=== PATIENT | female | born 1990 | race African-American/Black ===

== ENCOUNTER 2017-06-15 19:16 | Emergency (ER) | payer MEDICAID | END 2017-06-15 20:08 | disposition home or self-care (01) | LOC: D.ER 19:16 | DX: J06.9 Acute upper respiratory infection, unspecified (principal); J02.9 Acute pharyngitis, unspecified; F17.200 Nicotine dependence, unspecified, uncomplicated; I10 Essential (primary) hypertension ==

== ENCOUNTER 2017-10-28 11:56 | Emergency (ER) | payer MEDICAID ==
[2017-10-28 12:53] LABS: BASOPHILS 0.1 % (0-2); EOSINOPHILS 0.5 % (0-7); HEMOGLOBIN 13.2 g/dL (12-16); IMMATURE GRANULOCYTES 0.4 % (0-5); MCH 27.7 pg (26.0-34.0); MCHC 33.8 g/dL (31.0-37.0); MCV 81.8 fL (80.0-100.0); MEAN PLATELET VOLUME 10.1 fL (7.4-10.4); MONOCYTES 6.9 % (2-11); NEUTROPHILS 75.1 % (40-80); PLATELET COUNT 276 10x3/uL (130-400); RBC 4.77 10x6/uL (4.00-5.40); RDW 14.9 % (11.5-14.5); WBC 17.4 10x3/uL (4.8-10.8)
[2017-10-28 13:10] LABS: ALBUMIN 3.5 g/dL (3.4-5.0); ALKALINE PHOSPHATASE 95 U/L (46-116); ALT (SGPT) 36 U/L (10-68); BILIRUBIN - TOTAL 0.63 mg/dL (0.2-1.3); CALC OSMOLALITY 269 mosm/kg (275-300); CALCIUM 9.1 mg/dL (8.5-10.1); CARBON DIOXIDE 24.7 mmol/L (21.0-32.0); CHLORIDE - SERUM 101 mmol/L (98-107); CREATININE - SERUM 0.7 mg/dL (0.6-1.3); GLUCOSE 75 mg/dL (74-106); LIPASE 99 U/L (73-393); PROTEIN - SERUM 8.2 g/dL (6.4-8.2); SODIUM 136 mmol/L (136-145); UREA NITROGEN 10 mg/dL (7-18); eGFR NON AFRICAN AMERICAN > 90 mL/min (90-120)
[2017-10-28 13:11] LABS: POTASSIUM - SERUM 4.3 mmol/L (3.5-5.1)
[2017-10-28 14:15] LABS: APPEARANCE SLT CLOUDY (CLEAR); COLOR YELLOW (YELLOW)
[2017-10-28 14:16] LABS: BACTERIA MANY /hpf (NONE SEEN); BILIRUBIN NEGATIVE (NEGATIVE); GLUCOSE NEGATIVE (NEGATIVE); KETONE NEGATIVE (NEGATIVE); MUCUS <1+ /lpf (NONE SEEN); NITRITE POSITIVE (NEGATIVE); PROTEIN NEGATIVE (NEGATIVE); UROBILINOGEN NORMAL (NORMAL); WHITE CELLS - URINE 0-5 /hpf (0-5)
== END 2017-10-28 16:43 | disposition home or self-care (01) ==
LOC: D.ER 11:56
PROVIDERS: Family Medicine
DX: N39.0 Urinary tract infection, site not specified (principal); N10 Acute pyelonephritis

== ENCOUNTER 2017-12-10 15:37 | Emergency (ER) | payer MEDICAID ==
[2017-12-10 16:19] LABS: APPEARANCE CLEAR (CLEAR); BILIRUBIN NEGATIVE (NEGATIVE); COLOR YELLOW (YELLOW); GLUCOSE NEGATIVE (NEGATIVE); KETONE NEGATIVE (NEGATIVE); NITRITE NEGATIVE (NEGATIVE); PROTEIN NEGATIVE (NEGATIVE); UROBILINOGEN NORMAL (NORMAL)
[2017-12-10 16:49] LABS: BASOPHILS 0.2 % (0-2); EOSINOPHILS 1.4 % (0-7); HEMATOCRIT 37.9 % (36.0-48.0); HEMOGLOBIN 12.9 g/dL (12-16); IMMATURE GRANULOCYTES 0.2 % (0-5); LYMPHOCYTES 22.5 % (15-50); MCH 27.7 pg (26.0-34.0); MCV 81.3 fL (80.0-100.0); MEAN PLATELET VOLUME 9.5 fL (7.4-10.4); MONOCYTES 7.2 % (2-11); NEUTROPHILS 68.5 % (40-80); PLATELET COUNT 262 10x3/uL (130-400); RBC 4.66 10x6/uL (4.00-5.40); RDW 15.1 % (11.5-14.5); WBC 12.4 10x3/uL (4.8-10.8)
[2017-12-10 17:04] LABS: ALBUMIN 3.1 g/dL (3.4-5.0); ALKALINE PHOSPHATASE 69 U/L (46-116); ALT (SGPT) 22 U/L (10-68); BILIRUBIN - TOTAL 0.17 mg/dL (0.2-1.3); CALC OSMOLALITY 274 mosm/kg (275-300); CALCIUM 8.9 mg/dL (8.5-10.1); CARBON DIOXIDE 26.6 mmol/L (21.0-32.0); CHLORIDE - SERUM 104 mmol/L (98-107); CREATININE - SERUM 0.7 mg/dL (0.6-1.3); GLUCOSE 105 mg/dL (74-106); POTASSIUM - SERUM 3.6 mmol/L (3.5-5.1); PROTEIN - SERUM 6.8 g/dL (6.4-8.2); SODIUM 138 mmol/L (136-145); UREA NITROGEN 9 mg/dL (7-18); eGFR NON AFRICAN AMERICAN > 90 mL/min (90-120)
[2017-12-10 17:27] LABS: AMYLASE - SERUM 55 U/L (25-115); HCG - QUANTITATIVE (MATERNAL) 89849 mIU/mL; LIPASE 114 U/L (73-393)
== END 2017-12-10 19:05 | disposition home or self-care (01) ==
LOC: D.ER 15:37
PROVIDERS: Family Medicine
DX: O26.899 Other specified pregnancy related conditions, unspecified trimester (principal); Z3A.00 Weeks of gestation of pregnancy not specified; R11.0 Nausea

== ENCOUNTER 2017-12-17 04:37 | Emergency (ER) | payer MEDICAID ==
[2017-12-17 05:27] LABS: BASOPHILS 0.2 % (0-2); EOSINOPHILS 0.9 % (0-7); HEMATOCRIT 37.7 % (36.0-48.0); HEMOGLOBIN 12.7 g/dL (12-16); IMMATURE GRANULOCYTES 0.3 % (0-5); LYMPHOCYTES 29.6 % (15-50); MCH 27.7 pg (26.0-34.0); MCHC 33.7 g/dL (31.0-37.0); MCV 82.1 fL (80.0-100.0); MEAN PLATELET VOLUME 9.9 fL (7.4-10.4); MONOCYTES 6.3 % (2-11); NEUTROPHILS 62.7 % (40-80); RBC 4.59 10x6/uL (4.00-5.40); RDW 15.4 % (11.5-14.5); WBC 15.6 10x3/uL (4.8-10.8)
[2017-12-17 05:33] LABS: PLATELET COUNT 318 10x3/uL (130-400)
[2017-12-17 05:46] LABS: ALBUMIN 3.1 g/dL (3.4-5.0); ALKALINE PHOSPHATASE 68 U/L (46-116); ALT (SGPT) 20 U/L (10-68); CALC OSMOLALITY 273 mosm/kg (275-300); CALCIUM 8.9 mg/dL (8.5-10.1); CARBON DIOXIDE 27.3 mmol/L (21.0-32.0); CHLORIDE - SERUM 105 mmol/L (98-107); CREATININE - SERUM 0.7 mg/dL (0.6-1.3); GLUCOSE 89 mg/dL (74-106); PROTEIN - SERUM 6.7 g/dL (6.4-8.2); SODIUM 138 mmol/L (136-145); UREA NITROGEN 9 mg/dL (7-18); eGFR NON AFRICAN AMERICAN > 90 mL/min (90-120)
[2017-12-17 05:52] LABS: APPEARANCE HAZY (CLEAR); BILIRUBIN NEGATIVE (NEGATIVE); COLOR YELLOW (YELLOW); GLUCOSE NEGATIVE (NEGATIVE); NITRITE NEGATIVE (NEGATIVE); PH 5.5 (5.0-6.0); PROTEIN TRACE mg/dL (NEGATIVE); UROBILINOGEN NORMAL (NORMAL); WHITE CELLS - URINE NSEEN /hpf (0-5)
[2017-12-17 05:53] LABS: AMORPHOUS SEDIMENT <1+ /lpf (NONE SEEN); BACTERIA MODERATE /hpf (NONE SEEN); GRANULAR CAST NONE SEEN /lpf (NONE SEEN); HYALINE CAST NONE SEEN /lpf (NONE SEEN); MUCUS >1+ /lpf (NONE SEEN); RED CELL CAST NONE SEEN /lpf (NONE SEEN); RED CELLS - URINE 0-5 /hpf (0-5); SPERMATOZOA NONE SEEN /hpf (NONE SEEN); WAXY CAST NONE SEEN /lpf (NONE SEEN); YEAST NONE SEEN /hpf (NONE SEEN)
[2017-12-17 05:54] LABS: KETONE NEGATIVE (NEGATIVE)
[2017-12-17 05:55] LABS: HCG SERUM POSITIVE (NEGATIVE)
[2017-12-17 06:08] LABS: HCG - QUANTITATIVE (MATERNAL) 150150 mIU/mL
== END 2017-12-17 08:25 | disposition home or self-care (01) ==
LOC: D.ER 04:37
PROVIDERS: Family Medicine
DX: O20.8 Other hemorrhage in early pregnancy (principal); Z3A.01 Less than 8 weeks gestation of pregnancy; F17.200 Nicotine dependence, unspecified, uncomplicated

== ENCOUNTER 2018-01-20 17:01 | Emergency (ER) | payer MEDICAID ==
[~2018-01-20] VITALS: Ht 157.5 cm; Wt 100.0 kg
[2018-01-20 17:21] VITALS: Ht 157.5 cm; Wt 100.0 kg
[2018-01-21 02:06] VITALS: BP 139/76
== END 2018-01-21 02:00 | disposition home or self-care (01) ==
LOC: D.ER 17:01
DX: O26.891 Other specified pregnancy related conditions, first trimester (principal); Z3A.11 11 weeks gestation of pregnancy; E86.0 Dehydration; F17.200 Nicotine dependence, unspecified, uncomplicated

== ENCOUNTER 2018-02-10 19:13 | Emergency (ER) | payer MEDICAID ==
[~2018-02-10] VITALS: Ht 157.5 cm; Wt 81.6 kg
[2018-02-10 19:20] VITALS: Ht 157.5 cm; Wt 81.6 kg
[2018-02-10 20:44] LABS: BASOPHILS 0.2 % (0-2); EOSINOPHILS 1.3 % (0-7); HEMOGLOBIN 11.6 g/dL (12-16); IMMATURE GRANULOCYTES 0.5 % (0-5); LYMPHOCYTES 25.7 % (15-50); MCH 28.1 pg (26.0-34.0); MCHC 34.1 g/dL (31.0-37.0); MCV 82.3 fL (80.0-100.0); MEAN PLATELET VOLUME 9.8 fL (7.4-10.4); MONOCYTES 6.2 % (2-11); NEUTROPHILS 66.1 % (40-80); PLATELET COUNT 284 10x3/uL (130-400); RBC 4.13 10x6/uL (4.00-5.40); RDW 15.8 % (11.5-14.5); WBC 15.4 10x3/uL (4.8-10.8)
[2018-02-10 20:52] LABS: APPEARANCE SL CLDY (CLEAR); BILIRUBIN NEGATIVE (NEGATIVE); COLOR DK YELLOW (YELLOW); GLUCOSE NEGATIVE (NEGATIVE); KETONE NEGATIVE (NEGATIVE); NITRITE NEGATIVE (NEGATIVE); PROTEIN TRACE mg/dL (NEGATIVE); UROBILINOGEN NORMAL (NORMAL)
[2018-02-10 20:53] LABS: UDS - AMPHET NEGATIVE QUAL (NEGATIVE); UDS - BARB NEGATIVE QUAL (NEGATIVE); UDS - BENZO NEGATIVE QUAL (NEGATIVE); UDS - COCAINE NEGATIVE QUAL (NEGATIVE); UDS - OPIATE NEGATIVE QUAL (NEGATIVE); UDS - PCP NEGATIVE QUAL (NEGATIVE); UDS - THC NEGATIVE QUAL (NEGATIVE)
[2018-02-10 20:55] LABS: BACTERIA MODERATE /hpf (NONE SEEN); CALCIUM OXALATE CRYSTALS 0-5 /hpf (NONE SEEN); MUCUS <1+ /lpf (NONE SEEN); RED CELLS - URINE 0-5 /hpf (0-5)
[2018-02-10 21:08] LABS: ALBUMIN 2.7 g/dL (3.4-5.0); ALKALINE PHOSPHATASE 76 U/L (46-116); ALT (SGPT) 14 U/L (10-68); BILIRUBIN - TOTAL 0.11 mg/dL (0.2-1.3); CALC OSMOLALITY 272 mosm/kg (275-300); CARBON DIOXIDE 24.6 mmol/L (21.0-32.0); CHLORIDE - SERUM 105 mmol/L (98-107); CREATININE - SERUM 0.6 mg/dL (0.6-1.3); GLUCOSE 101 mg/dL (74-106); POTASSIUM - SERUM 3.7 mmol/L (3.5-5.1); PROTEIN - SERUM 6.7 g/dL (6.4-8.2); SODIUM 137 mmol/L (136-145); UREA NITROGEN 9 mg/dL (7-18); eGFR NON AFRICAN AMERICAN > 90 mL/min (90-120)
[2018-02-10] MEDS ORDERED: MACROBID100 MG PO (21:29)
[2018-02-10 23:04] VITALS: BP 132/77
== END 2018-02-10 23:05 | disposition home or self-care (01) ==
LOC: D.ER 19:13
PROVIDERS: Family Medicine
DX: O23.41 Unspecified infection of urinary tract in pregnancy, first trimester (principal); Z3A.11 11 weeks gestation of pregnancy; R51 Headache; R42 Dizziness and giddiness; F17.200 Nicotine dependence, unspecified, uncomplicated

== ENCOUNTER → 2018-04-06 13:00 | Outpatient (CLI) | payer MEDICAID ==
[2018-02-10 19:20] VITALS: BMI 40.3
[~2018-04-06 13:00] MED LIST: MACROBID100 MG PO
[2018-04-06 15:11] LABS: APPEARANCE CLEAR (CLEAR); BILIRUBIN NEGATIVE (NEGATIVE); COLOR YELLOW (YELLOW); GLUCOSE NEGATIVE (NEGATIVE); KETONE NEGATIVE (NEGATIVE); NITRITE NEGATIVE (NEGATIVE); PROTEIN NEGATIVE (NEGATIVE); UROBILINOGEN NORMAL (NORMAL)
== END | disposition home or self-care (01) ==
LOC: D.LDO 13:00
PROVIDERS: Obstetrics & Gynecology
DX: O26.893 Other specified pregnancy related conditions, third trimester (principal); Z3A.23 23 weeks gestation of pregnancy

== ENCOUNTER → 2018-07-03 16:22 | Outpatient (CLI) | payer MEDICAID ==
[2018-02-10 19:20] VITALS: BMI 40.3
[2018-07-03 18:04] LABS: APPEARANCE CLEAR (CLEAR); BILIRUBIN NEGATIVE (NEGATIVE); COLOR YELLOW (YELLOW); GLUCOSE NEGATIVE (NEGATIVE); KETONE NEGATIVE (NEGATIVE); NITRITE NEGATIVE (NEGATIVE); PROTEIN NEGATIVE (NEGATIVE); SPECIFIC GRAVITY 1.015 (1.005-1.020); UROBILINOGEN NORMAL (NORMAL)
[2018-07-03 18:10] LABS: UDS - AMPHET NEGATIVE QUAL (NEGATIVE); UDS - BARB NEGATIVE QUAL (NEGATIVE); UDS - BENZO NEGATIVE QUAL (NEGATIVE); UDS - COCAINE NEGATIVE QUAL (NEGATIVE); UDS - OPIATE NEGATIVE QUAL (NEGATIVE); UDS - PCP NEGATIVE QUAL (NEGATIVE); UDS - THC NEGATIVE QUAL (NEGATIVE)
== END | disposition home or self-care (01) ==
LOC: D.LDO 16:22
PROVIDERS: Obstetrics & Gynecology
DX: O26.893 Other specified pregnancy related conditions, third trimester (principal); Z3A.36 36 weeks gestation of pregnancy; R10.2 Pelvic and perineal pain

== ENCOUNTER → 2018-07-17 17:16 | Outpatient (CLI) | payer MEDICAID ==
[2018-02-10 19:20] VITALS: BMI 40.3
== END | disposition home or self-care (01) ==
LOC: D.LDO 17:16
DX: O26.893 Other specified pregnancy related conditions, third trimester (principal); Z3A.37 37 weeks gestation of pregnancy; M54.5 Low back pain

== ENCOUNTER → 2018-07-24 18:17 | Outpatient (CLI) | payer MEDICAID ==
[2018-02-10 19:20] VITALS: BMI 40.3
[~2018-07-24 18:17] MED LIST changes: +FLAGYL500 MG PO
[2018-07-26 06:45] VITALS: BMI 39.6
== END | disposition home or self-care (01) ==
LOC: D.LDO 18:17
DX: O36.8130 Decreased fetal movements, third trimester, not applicable or unspecified (principal); Z3A.39 39 weeks gestation of pregnancy

== ENCOUNTER 2018-07-26 06:10 | Inpatient (IN) | payer MEDICAID ==
[~2018-07-26] VITALS: Ht 157.5 cm; Wt 98.0 kg
[~2018-07-26 06:10] MED LIST changes: -FLAGYL500 MG PO
[2018-07-26 06:42] LABS: HEMATOCRIT 34.7 % (36.0-48.0); HEMOGLOBIN 11.6 g/dL (12-16); MCH 27.8 pg (26.0-34.0); MCHC 33.4 g/dL (31.0-37.0); MCV 83.2 fL (80.0-100.0); MEAN PLATELET VOLUME 10.9 fL (7.4-10.4); RBC 4.17 10x6/uL (4.00-5.40); WBC 15.6 10x3/uL (4.8-10.8)
[2018-07-26] MEDS ORDERED: FLAGYL500 MG PO (06:44)
[2018-07-26 06:45] VITALS: BP 126/70; Ht 157.5 cm; Wt 98.0 kg
[2018-07-26 07:29] LABS: APPEARANCE CLEAR (CLEAR); BACTERIA FEW /hpf (NONE SEEN); BILIRUBIN NEGATIVE (NEGATIVE); COLOR YELLOW (YELLOW); EPITHELIAL CELLS OCC /hpf (0-5); GLUCOSE NEGATIVE (NEGATIVE); KETONE NEGATIVE (NEGATIVE); MUCUS <1+ /lpf (NONE SEEN); NITRITE NEGATIVE (NEGATIVE); PROTEIN TRACE mg/dL (NEGATIVE); RED CELLS - URINE OCC /hpf (0-5); SPECIFIC GRAVITY 1.015 (1.005-1.020); UROBILINOGEN NORMAL (NORMAL); WHITE CELLS - URINE RARE /hpf (0-5)
--- NOTE | 2018-07-26 12:47 | NUR ---
BLUE SOCKS PROVIDED PER PT REQUEST. PT REPORTS NEED TO VOID. UNSTEADY ON LT LEG, CANNOT AMB. BEDPAN GIVEN. 300 ML BLOOD TINGED URINE VOIDED INTO BEDPAN. PERICARE PROVIDED. PERIPADS REPLACED. NO FURTHER NEEDS VOICED.
--- NOTE | 2018-07-26 14:00 | NUR ---
PT C/O ABDOMINAL CRAMPING OF "8" ON 0-10 PAIN SCALE. NORCO 5/325 AND MOTRIN 600 MG GIVEN PO ORDERED. PT INSTRUCTED ON MEDS. VERBALIZES UNDERSTANDING.
--- NOTE | 2018-07-26 15:03 | NUR ---
PT UNABLE TO AMBULATE ON LEFT LEG. PT STATES "IT'S STILL WOBBLY". PERIPAD AND PANTIES ON. PT TRANSFERED VIA WHEELCHAIR TO ROOM 1257. PT TO BED. ORIENTED TO ROOM, BED, AND CALL LIGHT. SR UPX 2. CALL LIGHT IN REACH.
--- NOTE | 2018-07-26 15:44 | NUR ---
PT RINGS CALL LIGHT REQUESTING NICOTINE PATCH. SAME PROVIDED. PATCH PLACED ON RT ARM. PT REPORTS NEED TO VOID. ABLE TO LIFT BOTTOM UP OFF OF THE BED WITHOUT DIFFICULTY USING ONLY HER LEGS. PT ABLE TO MOVE BOTH LEGS AND REPORTS NO NUMBNESS OR TINGLING. PT ASSISTED TO STANDING AT BEDSIDE WITHOUT DIFFICULTY. PT REPORTS NO WEAKNESS IN BLE. PT AMB WITH ASSIST TO BATHROOM. PT BEGINS TO STUMBLE, BUT DOES NOT COMPLETELY FALL. PT THEN SAT DOWN IN CHAIR AND PUSHED TO BATHROOM. TRANSFERS TO COMMODE WITH ASSISTANCE. VOIDS 400 ML CLEAR YELLOW URINE INTO [place] HAT. PT THEN TRANSFERRED BACK TO CHAIR AND MOVED BACK TO BED. PT TRANSFERRED BACK TO BED WITH ASSISTANCE AND ADVISED TO CALL FOR ASSISTANCE WHEN NEEDS TO VOID AGAIN. PT VERBALIZED UNDERSTANDING. DENIES FURTHER NEEDS AT THIS TIME.
[2018-07-26 19:15] VITALS: BP 144/98
--- NOTE | 2018-07-26 19:15 | NUR ---
SHIFT ASSESSMENT COMPLETED, SEE FLOWSHEET
[2018-07-26 20:30] VITALS: BP 154/98
--- NOTE | 2018-07-26 20:48 | NUR ---
DR [place] PAGED WITH IMMEDIATE CALL BACK, BLOOD PRESSURE READINGS REPORTED TO MD AT THIS TIME. NEW ORDERS NOTED TO CALL HIM IF HER BP IS REPEATEDLY >155/95.
--- NOTE | 2018-07-26 21:30 | NUR ---
SANDWICH TRAY AND JUICE PROVIDED. PT DENIES OTHER NEEDS.
[2018-07-26 22:30] VITALS: BP 144/85
--- NOTE | 2018-07-26 22:37 | NUR ---
ADMINISTERED MOTRIN PER MD ORDERS AND PT REQUEST. SEE EMAR
--- NOTE | 2018-07-26 23:58 | NUR ---
PATIENT CALLED MEL[facility] PACKER RODRIGUEZ ASKING HOW OFTEN HER NICOTINE PATCH NEEDS TO BE CHANGED. EXPLAINED TO PATIENT THAT IT IS GOOD FOR 24 HRS. PT VERBALIZED UNDERSTANDING.
--- NOTE | 2018-07-27 02:30 | NUR ---
PT RESTING QUIETLY WITH EYES CLOSED. RESPIRATIONS EVEN AND NON LABORED. NO DISTRESS NOTED. K[place]ALL CONTINUE TO MONITOR.
--- NOTE | 2018-07-27 03:15 | NUR ---
pt medicated for cramping. pain level of 8 per patient. ana paula senior rn
--- NOTE | 2018-07-27 04:34 | NUR ---
PATIENT AWAKE, LYING IN BED HOLDING INFANT. DENIES PAIN OR NEEDS AT THIS TIME. WILL CONTINUE TO MONITOR.
[2018-07-27 05:45] VITALS: BP 132/75
--- NOTE | 2018-07-27 05:45 | NUR ---
PT LYING IN BED HOLDING INFANT. BP TAKEN, WNL. PATIENT PROVIDED WITH APPLE JUICE PER REQUEST. PT DENIES PAIN OR NEEDS AT THIS TIME. WILL CONTINUE TO MONITOR
[2018-07-27 07:58] LABS: ALBUMIN 1.9 g/dL (3.4-5.0); ALKALINE PHOSPHATASE 161 U/L (46-116); ALT (SGPT) 13 U/L (10-68); BILIRUBIN - TOTAL 0.17 mg/dL (0.2-1.3); CALC OSMOLALITY 272 mosm/kg (275-300); CALCIUM 8.3 mg/dL (8.5-10.1); CARBON DIOXIDE 21.5 mmol/L (21.0-32.0); CHLORIDE - SERUM 104 mmol/L (98-107); CREATININE - SERUM 0.7 mg/dL (0.6-1.3); GLUCOSE 104 mg/dL (74-106); POTASSIUM - SERUM 3.6 mmol/L (3.5-5.1); PROTEIN - SERUM 5.8 g/dL (6.4-8.2); SODIUM 137 mmol/L (136-145); UREA NITROGEN 10 mg/dL (7-18); eGFR NON AFRICAN AMERICAN > 90 mL/min (90-120)
[2018-07-27 08:23] LABS: RAPID PLASMA REAGIN Non Reactive (Non Reactive)
[2018-07-27 08:28] LABS: HEMATOCRIT 32.8 % (36.0-48.0); HEMOGLOBIN 11.1 g/dL (12-16); LYMPHOCYTES 30.9 % (15-50); MCH 28.7 pg (26.0-34.0); MCHC 33.8 g/dL (31.0-37.0); MCV 84.8 fL (80.0-100.0); NEUTROPHILS 61.5 % (40-80); RBC 3.87 10x6/uL (4.00-5.40); RDW 15.6 % (11.5-14.5)
[2018-07-27 08:32] LABS: PLATELET COUNT 228 10x3/uL (130-400); WBC 11.6 10x3/uL (4.8-10.8)
--- NOTE | 2018-07-27 08:45 | NUR ---
rings call light- requesting pain medication.
--- NOTE | 2018-07-27 09:00 | NUR ---
entered room. pt resting in bed- in room. assessment done. vs done. co cramping and backache, rates pain a 6 on scale of 0-10. med given.
[2018-07-27 09:17] VITALS: BP 112/63
--- NOTE | 2018-07-27 10:05 | NUR ---
PT DENIES PAIN AT THIS TIME. STATES THAT SHE WOULD LIKE TO SHOWER IN AFTERNOON.
--- NOTE | 2018-07-27 11:00 | NUR ---
RINGS CALL LIGHT- REQUESTING APPLE JUICE. QUESTIONS WHEN TIME TO CHANGE NICOTINE PATCH.
--- NOTE | 2018-07-27 11:15 | NUR ---
APPLE JUICE GIVEN. INFORMED THAT NICOTINE PATCH IS CHANGED AT 1500- PT STATES UNDERSTANDING.
--- NOTE | 2018-07-27 13:00 | NUR ---
dr dwyer in room to see pt- no new orders.
--- NOTE | 2018-07-27 13:33 | NUR ---
resting in bed. denies needs. talking on phone.
--- NOTE | 2018-07-27 15:30 | NUR ---
THIS NURSE IN ROOM. DENIES NEEDS. LINENS CHANGED- VS DONE.
--- NOTE | 2018-07-27 18:45 | NUR ---
report to pm shift.
[2018-07-27 19:47] VITALS: BP 133/76
--- NOTE | 2018-07-27 19:47 | NUR ---
PT RESTING ON RIGHT LATERAL POSITION, RESP EVEN AND UNLABORED, ROUSES TO VERBAL STIMULI ON ENTRY TO ROOM, RESPONDS APPROPRIATELY, VSS, AFEBRILE, LUNGS CTAB, HEART RRR, ABD SOFT NON-DISTENDED, BOWEL SOUNDS ACTIVE X4 QUADRANTS, PASSING FLATUS, REPORTS BM JUST A FEW MINUTES AGO, VOIDING WITHOUT DIFFICULTY, FUNDUS FIRM AT U/2 AND MIDLINE, LOCHIA RUBRA LIGHT TO MODERATE AMOUNT, DENIES PASSING CLOTS, NIELSON FREELY, NEGATIVE KARI'S SIGN B LE, PEDAL PULSES STRONG/=/+2 B. RATES PAIN 4 OF 10 ON NUMERIC PAIN SCALE, IBUPROFEN PRN GIVEN PER PT REQUEST WITH SIPS WATER, CALL LIGHT IN EASY REACH, CONTINUE TO MONITOR.
--- NOTE | 2018-07-27 20:26 | NUR ---
PAIN REASSESSMENT COMPLETED, PT REPORTS INCREASING CRAMPING TO LOW ABDOMEN, REQUESTS ADDITIONAL PRN MED, NORCO GIVEN WITH SIPS OF APPLE JUICE, HS SNACK TRAY ALSO DELIVERED. PT DENIES OTHER NEEDS AT PRESENT. CONTINUE TO MONITOR.
--- NOTE | 2018-07-27 20:45 | NUR ---
PT USING CALL LIGHT TO REPORT PASSING CLOT WITH VOID JUST NOW. CLOT NOTED TO BE APPROXIMATELY SILVER DOLLAR SIZED BUT NO FURTHER BLEEDING NOTED. INSTRUCTED TO NOTIFY THIS RN OF ANY FURTHER CLOTS OR EXCESSIVE BLEEDING, PT STATES UNDERSTANDING AND INTENT TO COMPLY. CONTINUE TO MONITOR.
--- NOTE | 2018-07-27 21:11 | NUR ---
PAIN REASSESSMENT COMPLETED, PT RESTING WITH EYES CLOSED ON ENTRY TO ROOM, REPORTS PAIN NOW 3 OF 10 ON NUMERIC SCALE, DENIES OTHER NEEDS, LIGHTS DIMMED PER REQUEST. CONTINUE TO MONITOR.
--- NOTE | 2018-07-27 22:22 | NUR ---
ROUNDS COMPLETED. PT RESTING WITH EYES CLOSED ON ROOM ENTRY, ROUSES TO VERBAL STIMULI, INFANT TO PT ARMS PER REQUEST, NO OTHER NEEDS VOICED AT THIS TIME, CONTINUE TO MONITOR.
--- NOTE | 2018-07-28 00:49 | NUR ---
ROUNDS COMPLETED, PT RESTING IN RIGHT LATERAL POSITION, EYES CLOSED, RESP EVEN AND UNLABORED, NAD NOTED. RESTING IN ROLLING CRIB ADJACENT TO BED ALSO NAD NOTED. CALL LIGHT IN EASY REACH, CONTINUE TO MONITOR.
--- NOTE | 2018-07-28 01:24 | NUR ---
PT USING CALL LIGHT TO REQUEST APPLE JUICE; SAME PROVIDED, DENIES OTHER NEEDS AT THIS TIME, DENIES PAIN. IN ARMS AT PRESENT. CALL LIGHT IN EASY REACH, NAD NOTED. CONTINUE TO MONITOR.
--- NOTE | 2018-07-28 03:42 | NUR ---
ROUNDS COMPLETED, PT REQUESTS ICE CREAM AND CHIPS; SAME PROVIDED, DENIES OTHER NEEDS AT THIS TIME, INFANT RESTING WITH EYES CLOSED IN ROLLING CRIB ADJACENT TO BED. SIDE RAILS UP X2, BED IN LOW POSITION, BRAKES LOCKED, CONTINUE TO MONITOR.
--- NOTE | 2018-07-28 04:25 | NUR ---
PT COMPLAINT PAIN 4/10 0N NUMERIC PAIN SCALE, REQUESTS MOTRIN/NORCO BOTH, SAME PROVIDED, ADDITIONAL GRAPE JUICE AND CRANBERRY JUICE GIVEN REQUESTED WELL. PT ALSO REPORTS PASSING TWO QUARTER SIZED CLOTS NOTED ON VOID, FUNDUS FIRM AT U/2 AND MIDLINE AT PRESENT, NO OTHER CONCERNS NOTED AT THIS TIME. CONTINUE TO MONITOR.
--- NOTE | 2018-07-28 05:10 | NUR ---
PAIN REASSESSMENT COMPLETED, PT RATES PAIN 3/10 ON NUMERIC PAIN SCALE, SCROLLING THROUGH CELL PHONE SUPINE IN BED, NAD NOTED, RESP EVEN AND UNLABORED, PT SMILES WITH THIS RN ENTRY TO ROOM, CALL LIGHT IN EASY REACH, DENIES NEEDS AT PRESENT. CONTINUE TO MONITOR.
[2018-07-28 07:36] VITALS: BP 139/65
--- NOTE | 2018-07-28 07:45 | NUR ---
ASLEEP-AWAKENED FOR ASSESSMENT. VERBAL RESPONSES APPRO TO QUESTIONS. DENIES PAIN OR DISCOMFORT- DENIES NEEDS. INFANT IN ROOM. SCANT LOCHIA NOTED ON PAD. REG BREAKFAST SERVED.
--- NOTE | 2018-07-28 10:11 | NUR ---
RHOGAM GIVEN. IV SALINE LOCK REMOVED- PRESSURE HELD AND BANDAIDE APPLIED.
--- NOTE | 2018-07-28 10:36 | NUR ---
SITTING UP IN BED FEEDING . REQUESTING MOTRIN FOR CRAMPING.
--- NOTE | 2018-07-28 10:46 | NUR ---
MOTRING GIVEN FOR CRAMPING. TDAP GIVEN RT HIP.
[2018-07-28] MEDS ORDERED: HYDROCODON-ACE1 EAC7 PO (11:45)
[2018-07-28] MEDS ORDERED: MOTRIN600 MG (11:47)
[2018-07-28 13:47] VITALS: BP 135/73
--- NOTE | 2018-07-28 13:50 | NUR ---
DISCHARGE INST VERBAL AND WRITTEN GIVEN. PRESCRIPTION GIVEN - NORCO AND MOTRIN. PT MED REC AND MEDICATION INFO SHEETS GIVEN. PFW POST INST GIVEN. PT HEALTH SUMMARY GIVEN. PT DENIES QUESTIONS.
--- NOTE | 2018-07-28 16:23 | NUR ---
PT TRANSPORTED OFF UNIT VIA W/C TO AWAITING RIDE.
== END 2018-07-28 16:23 | disposition home or self-care (01) | DRG 807 ==
LOC: D.LD 06:10
PROVIDERS: ADMIT Obstetrics & Gynecology
PROC: 10E0XZZ Delivery of Products of Conception, External Approach (ICD-10-PCS; principal; 2018-07-26)
DX: O13.4 Gestational [pregnancy-induced] hypertension without significant proteinuria, complicating childbirth (principal); Z37.0 Single live birth; Z3A.39 39 weeks gestation of pregnancy; O99.334 Smoking (tobacco) complicating childbirth

== ENCOUNTER 2018-09-22 07:07 | Day surgery (SDC) | payer MEDICAID ==
[2018-09-20 16:28] LABS: BASOPHILS 0.2 % (0-2); EOSINOPHILS 1.8 % (0-7); HEMOGLOBIN 12.1 g/dL (12-16); IMMATURE GRANULOCYTES 0.2 % (0-5); MCH 27.6 pg (26.0-34.0); MCHC 33.6 g/dL (31.0-37.0); MEAN PLATELET VOLUME 9.6 fL (7.4-10.4); NEUTROPHILS 60.8 % (40-80); RBC 4.39 10x6/uL (4.00-5.40); RDW 15.3 % (11.5-14.5); WBC 12.7 10x3/uL (4.8-10.8)
[2018-09-20 17:18] LABS: PLATELET COUNT 290 10x3/uL (130-400)
[~2018-09-22] VITALS: Ht 157.5 cm; Wt 88.5 kg
--- NOTE | ~2018-09-22 | OP ---
PATIENT NAME: ASHLI BOO MEDICAL RECORD: [id number] :88 [facility] DATE: SURGEON: EVIN CHRIS MD DATE OF OPERATION: 09/22/2018 PREOPERATIVE DIAGNOSIS: Multiparity, patient desires permanent sterility. POSTOPERATIVE DIAGNOSIS: Multiparity, patient desires permanent sterility. PROCEDURE: Laparoscopic tubal ligation via bipolar cautery. SURGEON: Evin Chris MD ANESTHESIA: General by LMA. INTRAVENOUS FLUIDS: Per anesthesia record. FINDINGS: Grossly normal-appearing fallopian tubes, ovaries, and uterus. SPECIMENS: None. COMPLICATIONS: None apparent. DESCRIPTION OF PROCEDURE: The patient was taken to the operating room, where general anesthesia was achieved without any difficulty. The patient was then prepped and draped in normal sterile fashion in dorsal lithotomy position in the [facility]. The patient was then prepped and draped and the bladder drained of approximately 100 cc of clear yellow urine. A sponge stick was then placed into the vagina for uterine elevation. Attention was then turned to the umbilicus, where a 5-mm incision was made in the inferior aspect. A 5-mm bladeless trocar was then used to enter the intraperitoneal space under direct visualization of the laparoscope. The introducer was removed and then the camera was replaced and intraperitoneal placement was then visually confirmed. The patient was insufflated. Opening pressure was found to be less than 8 mmHg. Following insufflation, a second 5-mm incision was made in the midline approximately 5 cm above the pubic symphysis in the midline. A 5-mm incision was made and a 5-mm bladeless trocar was then used to enter the intraperitoneal space under direct visualization of the laparoscope. Survey of the abdomen and pelvis was then performed. The Gyrus bipolar paddles were then used to completely desiccate an approximately 5-6 cm portion of the mid tube bilaterally. Good hemostasis was noted from both surgical sites. The patient was then desufflated and the trocars removed. Skin was repaired with 2-0 Vicryl in an interrupted fashion. A sponge stick was then removed from the vagina. The patient tolerated the procedure well, was transported to postanesthesia recovery stable and without incident. TRANSINT:[id number] Voice Confirmation ID: [id number] DOCUMENT ID: [id number] OPERATIVE REPORT [id number] PUTILLO,EVIN MONROY MD CC: [id number] DICTATION DATE: 09/30/18 0701 [employer] ENGINEER: 09/30/18 1034 [facility] [place] 09/22/18 [id number] [place] [address]
[~2018-09-22 07:07] MED LIST changes: +FLAGYL500 MG PO; +HYDROCODON-ACE1 EAC7 PO; +MOTRIN600 MG
[2018-09-22 07:20] VITALS: BP 150/101; Ht 157.5 cm; Wt 88.5 kg
[2018-09-22 07:37] LABS: HCG URINE NEGATIVE (NEGATIVE)
--- NOTE | 2018-09-22 11:05 | NUR ---
REC'D FROM RR. DROWSY. AROUSES TO VERBAL STIMULI. DRESSING CDI TO SURGICAL SITES. NO FAMILY AT BEDSIDE.
--- NOTE | 2018-09-22 11:35 | NUR ---
PT LYING WITH EYES CLOSED. AROUSES TO VERBAL STIMULI. NOT AWAKE TO EAT. ATE ICE CHIPS WHEN NURSE WOKE HER TO TAKE VS. NO FAMILY AT BEDSIDE.DRESSINGS CDI.
--- NOTE | 2018-09-22 12:05 | NUR ---
JAGDISH SAHNI SERVED TO PT. [facility] IS GOING TO PICK HER UP.
--- NOTE | 2018-09-22 12:30 | NUR ---
TOLERATED FL TRAY. IV DC'D WITH CATHETER INTACT.
--- NOTE | 2018-09-22 13:05 | NUR ---
WRITTEN AND VERBAL DC INST. GIVEN TO PT ALONG WITH RX. VERBALIZED UNDERSTANDING. WAITING FOR TRANSPORTATION.
--- NOTE | 2018-09-22 13:50 | NUR ---
DC'D HOME WITH FAMILY VIA PRIVATE VEHICLE. TAKEN TO VEHICLE VIA WC. STABLE AT TIME OF DC.
== END 2018-09-22 13:50 | disposition home or self-care (01) ==
LOC: D.OPS 07:07 → D.PAN 08:30 → EDSTATUS 08:30 → D.OPS 13:50
PROVIDERS: ATTEND Obstetrics & Gynecology
DX: Z30.2 Encounter for sterilization (principal)

== ENCOUNTER 2018-10-28 21:52 | Emergency (ER) | payer MEDICAID ==
[2018-10-28] MEDS ORDERED: PHENERGAN DM SYR5 ML PO (22:26)
[2018-10-28] MEDS ORDERED: AMOXICILLIN500 M1 PO (22:26)
== END 2018-10-28 22:45 | disposition home or self-care (01) ==
LOC: D.ER 21:52
DX: J06.9 Acute upper respiratory infection, unspecified (principal); R05 Cough; R51 Headache

== ENCOUNTER 2019-04-06 17:26 | Emergency (ER) | payer MEDICAID ==
[~2019-04-06] VITALS: Ht 157.5 cm; Wt 95.5 kg
[~2019-04-06 17:26] MED LIST changes: +AMOXICILLIN500 M1 PO; +PHENERGAN DM SYR5 ML PO
[2019-04-06 17:34] VITALS: Ht 157.5 cm; Wt 95.5 kg
[2019-04-06 17:57] LABS: BASOPHILS 0.1 % (0-2); EOSINOPHILS 0.5 % (0-7); HEMATOCRIT 38.2 % (36.0-48.0); HEMOGLOBIN 13.4 g/dL (12-16); IMMATURE GRANULOCYTES 0.3 % (0-5); LYMPHOCYTES 11.5 % (15-50); MCH 27.6 pg (26.0-34.0); MCHC 35.1 g/dL (31.0-37.0); MCV 78.6 fL (80.0-100.0); MEAN PLATELET VOLUME 9.4 fL (7.4-10.4); MONOCYTES 5.3 % (2-11); NEUTROPHILS 82.3 % (40-80); PLATELET COUNT 314 10x3/uL (130-400); RBC 4.86 10x6/uL (4.00-5.40); RDW 15.3 % (11.5-14.5); WBC 14.9 10x3/uL (4.8-10.8)
[2019-04-06 18:08] LABS: APPEARANCE CLEAR (CLEAR); BILIRUBIN NEGATIVE (NEGATIVE); COLOR YELLOW (YELLOW); GLUCOSE NEGATIVE (NEGATIVE); KETONE NEGATIVE (NEGATIVE); NITRITE NEGATIVE (NEGATIVE); PROTEIN NEGATIVE (NEGATIVE); UROBILINOGEN NORMAL (NORMAL)
[2019-04-06 18:09] LABS: BACTERIA MODERATE /hpf (NEGATIVE); EPITHELIAL CELLS 0-5 /hpf (0-5); RED CELLS - URINE 0-5 /hpf (0-5)
[2019-04-06 18:10] LABS: HCG URINE NEGATIVE (NEGATIVE)
[2019-04-06 18:19] LABS: ALBUMIN 3.1 g/dL (3.4-5.0); ALKALINE PHOSPHATASE 103 U/L (46-116); ALT (SGPT) 24 U/L (10-68); BILIRUBIN - TOTAL 0.18 mg/dL (0.2-1.3); CALC OSMOLALITY 283 mosm/kg (275-300); CALCIUM 8.6 mg/dL (8.5-10.1); CARBON DIOXIDE 23.8 mmol/L (21.0-32.0); CHLORIDE - SERUM 108 mmol/L (98-107); CREATININE - SERUM 0.8 mg/dL (0.6-1.3); GLUCOSE 118 mg/dL (74-106); POTASSIUM - SERUM 3.5 mmol/L (3.5-5.1); PROTEIN - SERUM 7.3 g/dL (6.4-8.2); SODIUM 143 mmol/L (136-145); UREA NITROGEN 8 mg/dL (7-18); eGFR NON AFRICAN AMERICAN 89 mL/min (90-120)
[2019-04-06] MEDS ORDERED: PHENAZOPYRIDIN100 MG PO (18:39)
[2019-04-06] MEDS ORDERED: MACROBID100 MG PO (18:39)
[2019-04-06 19:26] VITALS: BP 134/84
== END 2019-04-06 19:26 | disposition home or self-care (01) ==
LOC: D.ER 17:26
PROVIDERS: Family Medicine
DX: N39.0 Urinary tract infection, site not specified (principal)

== ENCOUNTER 2020-12-02 21:57 | Emergency (ER) | payer MEDICAID ==
[~2020-12-02] VITALS: Ht 157.5 cm; Wt 111.4 kg
[~2020-12-02 21:57] MED LIST changes: +PHENAZOPYRIDIN100 MG PO
[2020-12-02 22:16] VITALS: Ht 157.5 cm; Wt 111.4 kg
[2020-12-02 22:38] LABS: BASOPHILS 0.9 % (0-2); EOSINOPHILS 1.9 % (0-7); HEMOGLOBIN 13.6 g/dL (12-16); LYMPHOCYTES 31.4 % (15-50); MCH 26.2 pg (26.0-34.0); MCHC 32.3 g/dL (31.0-37.0); MCV 81.2 fL (80.0-100.0); MEAN PLATELET VOLUME 7.7 fL (7.4-10.4); MONOCYTES 7.4 % (2-11); NEUTROPHILS 58.4 % (40-80); PLATELET COUNT 374 10x3/uL (130-400); RBC 5.17 10x6/uL (4.00-5.40); RDW 16.3 % (11.5-14.5); WBC 16.7 10x3/uL (4.8-10.8)
[2020-12-02 22:40] LABS: BILIRUBIN NEGATIVE (NEGATIVE); KETONE NEGATIVE (NEGATIVE); NITRITE NEGATIVE (NEGATIVE); UROBILINOGEN NORMAL mg/dL (< 2)
[2020-12-02 22:43] LABS: HCG URINE NEGATIVE (NEGATIVE)
[2020-12-02 22:46] LABS: CALC OSMOLALITY 283 mosm/kg (275-300); CARBON DIOXIDE 21.3 mmol/L (21.0-32.0); CHLORIDE - SERUM 106 mmol/L (98-107); CREATININE - SERUM 0.9 mg/dL (0.6-1.3); GLUCOSE 101 mg/dL (74-106); POTASSIUM - SERUM 4.3 mmol/L (3.5-5.1); SODIUM 142 mmol/L (136-145); UREA NITROGEN 14 mg/dL (7-18); eGFR NON AFRICAN AMERICAN 77 mL/min (90-120)
[2020-12-02 22:55] LABS: ALBUMIN 3.7 g/dL (3.4-5.0); ALKALINE PHOSPHATASE 107 U/L (30-120); ALT (SGPT) 30 U/L (10-68); AMYLASE - SERUM 69 U/L (25-115); BILIRUBIN - TOTAL 0.34 mg/dL (0.2-1.3); LIPASE 197 U/L (73-393); PROTEIN - SERUM 8.1 g/dL (6.4-8.2)
[2020-12-02 22:56] LABS: TROPONIN-I < 0.017 ng/mL (0.000-0.060)
[2020-12-03] MEDS ORDERED: ULTRAM50 MG PO (03:58)
[2020-12-03 04:12] VITALS: BP 98/48
== END 2020-12-03 04:13 | disposition home or self-care (01) ==
LOC: D.ER 21:57
PROVIDERS: Family Medicine
DX: K80.80 Other cholelithiasis without obstruction (principal); M54.9 Dorsalgia, unspecified

== ENCOUNTER 2020-12-18 07:03 | Emergency (ER) | payer BC ==
[~2020-12-18] VITALS: Ht 157.5 cm; Wt 113.6 kg
[~2020-12-18 07:03] MED LIST changes: +ULTRAM50 MG PO
[2020-12-18 07:10] VITALS: Ht 157.5 cm; Wt 113.6 kg
[2020-12-18 07:33] LABS: BILIRUBIN NEGATIVE (NEGATIVE); KETONE NEGATIVE (NEGATIVE); NITRITE NEGATIVE (NEGATIVE); UROBILINOGEN NORMAL mg/dL (< 2)
[2020-12-18 07:34] LABS: BACTERIA FEW HPF (NONE SEEN); HCG URINE NEGATIVE (NEGATIVE); SQUAMOUS EPITHELIAL 0-5 HPF (0-4); WHITE CELLS - URINE 0-5 HPF (0-4)
[2020-12-18 07:37] LABS: BASOPHILS 0.8 % (0-2); EOSINOPHILS 1.5 % (0-7); HEMATOCRIT 40.9 % (36.0-48.0); HEMOGLOBIN 13.1 g/dL (12-16); LYMPHOCYTES 21.3 % (15-50); MCH 26.4 pg (26.0-34.0); MCHC 32.1 g/dL (31.0-37.0); MCV 82.1 fL (80.0-100.0); MEAN PLATELET VOLUME 7.6 fL (7.4-10.4); MONOCYTES 7.2 % (2-11); NEUTROPHILS 69.2 % (40-80); PLATELET COUNT 345 10x3/uL (130-400); RBC 4.98 10x6/uL (4.00-5.40); RDW 16.1 % (11.5-14.5); WBC 12.9 10x3/uL (4.8-10.8)
[2020-12-18 07:52] LABS: CALC OSMOLALITY 276 mosm/kg (275-300); CALCIUM 8.9 mg/dL (8.5-10.1); CARBON DIOXIDE 25.5 mmol/L (21.0-32.0); CHLORIDE - SERUM 105 mmol/L (98-107); CREATININE - SERUM 0.7 mg/dL (0.6-1.3); GLUCOSE 94 mg/dL (74-106); POTASSIUM - SERUM 4.1 mmol/L (3.5-5.1); SODIUM 138 mmol/L (136-145); UREA NITROGEN 15 mg/dL (7-18); eGFR NON AFRICAN AMERICAN > 90 mL/min (90-120)
[2020-12-18 08:01] LABS: ALBUMIN 3.8 g/dL (3.4-5.0); ALKALINE PHOSPHATASE 103 U/L (30-120); ALT (SGPT) 32 U/L (10-68); AMYLASE - SERUM 56 U/L (25-115); BILIRUBIN - TOTAL 0.22 mg/dL (0.2-1.3); LIPASE 93 U/L (73-393); PROTEIN - SERUM 7.8 g/dL (6.4-8.2); TROPONIN-I < 0.017 ng/mL (0.000-0.060)
[2020-12-18] MEDS ORDERED: HYDROCODON-ACE1 EAC7 PO (08:43)
[2020-12-18 09:34] VITALS: BP 128/82
== END 2020-12-18 09:53 | disposition home or self-care (01) ==
LOC: D.ER 07:03
PROVIDERS: Emergency Medicine
DX: K80.50 Calculus of bile duct without cholangitis or cholecystitis without obstruction (principal); R10.11 Right upper quadrant pain; K80.20 Calculus of gallbladder without cholecystitis without obstruction

== ENCOUNTER → 2021-01-01 08:49 | Outpatient (CLI) | payer MEDICAID ==
[2020-12-18 07:10] VITALS: BMI 45.8
== END | disposition home or self-care (01) ==
LOC: D.US 08:30
PROVIDERS: ATTEND Nurse Practitioner
DX: K80.20 Calculus of gallbladder without cholecystitis without obstruction (principal)